=== PATIENT | male | born 1960 ===

== ENCOUNTER 2023-06-21 19:29 | Emergency (ER) | payer MEDICARE, OTHER ==
[2023-06-21] MEDS ORDERED: diphenhydrAMINE INJ 50 MG/ML VIAL IVP STA (19:42)
[2023-06-21] MEDS ORDERED: cefTRIAXone IV/IM 1,000 MG in NS (IVPB) 50 ML 50 ML IV STA (19:42)
[2023-06-21] MEDS ORDERED: dexAMETHasone INJ 10 MG/ML 1 ML VIAL IV STA (19:42)
[2023-06-21] MEDS ORDERED: NS IV 1000 ML 1,000 ML IV STA (19:42)
[2023-06-21] MEDS ORDERED: ACETAMINOPHEN 325 MG TABLET PO STA (19:42)
[2023-06-21 19:48] LABS: BASOPHILS % (AUTO) 0 % (0-10); EOSINOPHILS # (AUTO) 0.1 10^3/uL (0.0-0.3); EOSINOPHILS % (AUTO) 1 % (0-10); HEMATOCRIT 42 % (40-54); HEMOGLOBIN 13.9 g/dL (13.3-17.7); LYMPHOCYTES # (AUTO) 0.4 10^3/uL (1.0-4.0); LYMPHOCYTES % (AUTO) 4 % (12-44); MEAN CORPUSCULAR HEMOGLOBIN 28 pg (25-34); MEAN CORPUSCULAR HGB CONC 33 g/dL (32-36); MEAN CORPUSCULAR VOLUME 86 fL (80-99); MEAN PLATELET VOLUME 9.9 fL (9.0-12.2); MONOCYTES # (AUTO) 0.3 10^3/uL (0.0-1.0); MONOCYTES % (AUTO) 3 % (0-12); NEUTROPHILS # (AUTO) 8.9 10^3/uL (1.8-7.8); NEUTROPHILS % (AUTO) 91 % (42-75); PLATELET COUNT 144 10^3/uL (130-400); WHITE BLOOD COUNT 9.8 10^3/uL (4.3-11.0)
--- NOTE | 2023-06-21 19:51 | ED General ---
General Stated Complaint: RIGHT FOOR INJ|CHEST INJ Source of Information: Patient Exam Limitations: Language Barrier (Patient insisted on using family member for scientific specialist but was able to answer questions directly and seemed to understand Romansh) History of Present Illness Date Seen by Provider: Jun 21, 2023 Time Seen by Provider: 19:32 Initial Comments 63-year-old male presenting with family complaining of pain and swelling to bilateral feet. He has had a fever throughout the day. He was stung by a wasp yesterday on his right calf. He removed the stinger but today was having the pain and redness to bilateral feet as well as running a fever. He had tried Tylenol without improvement and was having severe pain whenever he tried to step down on his feet. He denies having symptoms like this previously. He did not take any other medicines by mouth. He had tried spraying some Raid on his skin because he thought that it might help with the itching but it seemed to make things worse. Timing/Duration: 12-24 Hours Severity: Moderate Associated Systoms: No Chest Pain, No Cough, No Diaphoresis; Fever/Chills; No Headaches, No Loss of Appetite; Malaise; No Nausea/Vomiting; Rash; No Seizure, No Shortness of Air, No Syncope, No Weakness Allergies and Home Medications Allergies Coded Allergies: No Known Drug Allergies (Unverified , 06/21/23) Patient Home Medication List Home Medication List Reviewed: Yes Cephalexin (Cephalexin) 500 Mg Capsule, 500 MG PO TID Prescribed by: VESTA CHOWDHURY on 06/21/232054 Diphenhydramine HCl (Diphenhydramine HCl) 25 Mg Capsule, 25 MG PO Q4H PRN for ITCHING Prescribed by: VESTA CHOWDHURY on 06/21/232054 Prednisone (Prednisone) 20 Mg Tab, 40 MG PO DAILY Prescribed by: VESTA CHOWDHURY on 06/21/232054 Review of Systems Review of Systems Constitutional: chills, fever EENTM: no symptoms reported Respiratory: no symptoms reported Cardiovascular: no symptoms reported Gastrointestinal: no symptoms reported Genitourinary: no symptoms reported Musculoskeletal: see HPI Skin: see HPI Psychiatric/Neurological: Anxiety Past Iedbdrc-Xbwwbg-Efpjcj Hx Patient Social History Tobacco Use?: No Physical Exam Vital Signs Vital Signs - First Documented 06/21/23 19:35 Temp 38.1 Pulse 79 Resp 18 B/P (MAP) 121/71 (88) Pulse Ox 96 O2 Delivery Room Air Capillary Refill : Height, Weight, BMI Height: '" Weight: lbs. oz. kg; BMI Method: General Appearance: No Apparent Distress, WD/WN Respiratory: Chest Non Tender, Lungs Clear, Normal Breath Sounds, No Accessory Muscle Use, No Respiratory Distress Cardiovascular: Regular Rate, Rhythm, Normal Peripheral Pulses Gastrointestinal: Normal Bowel Sounds, No Pulsatile Mass, Non Tender, Soft Extremity: Normal Capillary Refill, Inflammation (Both feet are red and tender to palpation with 1+ edema bilaterally), Pedal Edema (1+ BLE) Neurologic/Psychiatric: Alert, Oriented x3 Skin: Warm/Dry, Erythema (Bilateral feet) Focused Exam Lactate Level 06/21/23 19:47: Lactic Acid Level 1.35 Lactic Acid Level Laboratory Tests Test 06/21/23 19:47 Lactic Acid Level 1.35 MMOL/L (0.50-2.00) Progress/Results/Core Measures Suspected Sepsis SIRS Temperature: Pulse: Respiratory Rate: Laboratory Tests 06/21/23 19:47: White Blood Count 9.8 Blood Pressure / Mean: 06/21/23 19:47: Lactic Acid Level 1.35 Laboratory Tests 06/21/23 19:47: Creatinine 0.98, Platelet Count 144, Total Bilirubin 0.8 Results/Orders Lab Results Laboratory Tests Test 06/21/23 19:47 06/21/23 20:01 Range/Units White Blood Count 9.8 4.3-11.0 10^3/uL Red Blood Count 4.92 4.30-5.52 10^6/uL Hemoglobin 13.9 13.3-17.7 g/dL Hematocrit 42 40-54 % Mean Corpuscular Volume 86 80-99 fL Mean Corpuscular Hemoglobin 28 25-34 pg Mean Corpuscular Hemoglobin Concent 33 32-36 g/dL Red Cell Distribution Width 13.1 10.0-14.5 % Platelet Count 144 130-400 10^3/uL Mean Platelet Volume 9.9 9.0-12.2 fL Immature Granulocyte % (Auto) 0 % Neutrophils (%) (Auto) 91 H 42-75 % Lymphocytes (%) (Auto) 4 L 12-44 % Monocytes (%) (Auto) 3 0-12 % Eosinophils (%) (Auto) 1 0-10 % Basophils (%) (Auto) 0 0-10 % Neutrophils # (Auto) 8.9 H 1.8-7.8 10^3/uL Lymphocytes # (Auto) 0.4 L 1.0-4.0 10^3/uL Monocytes # (Auto) 0.3 0.0-1.0 10^3/uL Eosinophils # (Auto) 0.1 0.0-0.3 10^3/uL Basophils # (Auto) 0.0 0.0-0.1 10^3/uL Immature Granulocyte # (Auto) 0.0 0.0-0.1 10^3/uL Neutrophils % (Manual) 91 % Lymphocytes % (Manual) 2 % Monocytes % (Manual) 6 % Eosinophils % (Manual) 1 % Sodium Level 136 135-145 MMOL/L Potassium Level 3.9 3.6-5.0 MMOL/L Chloride Level 103 98-107 MMOL/L Carbon Dioxide Level 23 21-32 MMOL/L Anion Gap 10 5-14 MMOL/L Blood Urea Nitrogen 15 7-18 MG/DL Creatinine 0.98 0.60-1.30 MG/DL Estimat Glomerular Filtration Rate 88 BUN/Creatinine Ratio 15 Glucose Level 106 H 70-105 MG/DL Lactic Acid Level 1.35 0.50-2.00 MMOL/L Calcium Level 9.3 8.5-10.1 MG/DL Corrected Calcium 9.0 8.5-10.1 MG/DL Total Bilirubin 0.8 0.1-1.0 MG/DL Aspartate Amino Transf (AST/SGOT) 25 5-34 U/L Alanine Aminotransferase (ALT/SGPT) 16 0-55 U/L Alkaline Phosphatase 88 40-136 U/L C-Reactive Protein 2.43 H <0.50 MG/DL Total Protein 6.7 6.4-8.2 GM/DL Albumin 4.4 3.2-4.5 GM/DL Urine Color YELLOW Urine Clarity CLEAR Urine pH 6.5 5-9 Urine Specific [place] <=1.005 1.016-1.022 Urine Protein NEGATIVE NEGATIVE Urine Glucose (UA) NEGATIVE NEGATIVE Urine Ketones NEGATIVE NEGATIVE Urine Nitrite NEGATIVE NEGATIVE Urine Bilirubin NEGATIVE NEGATIVE Urine Urobilinogen 0.2 < = 1.0 MG/DL Urine Leukocyte Esterase NEGATIVE NEGATIVE Urine RBC (Auto) NEGATIVE NEGATIVE Urine RBC NONE /HPF Urine WBC 2-5 /HPF Urine Squamous Epithelial Cells 2-5 /HPF Urine Crystals NONE /LPF Urine Bacteria NEGATIVE /HPF Urine Casts NONE /LPF Urine Mucus NEGATIVE /LPF Urine Culture Indicated NO My Orders Orders - VESTA CHOWDHURY MD Acetaminophen Tablet (Acetaminophen Ta (06/21/23 19:42) Cbc With Automated Diff (06/21/23 19:42) Comprehensive Metabolic Panel (06/21/23 19:42) Blood Culture (06/21/23 19:42) Ua Culture If Indicated (06/21/23 19:42) Ed Iv/Invasive Line Start (06/21/23 19:42) Crp Fs (06/21/23 19:42) Lactic Acid Analyzer (06/21/23 19:42) Ns Iv 1000 Ml (Ns Iv 1000 Ml) (06/21/23 19:42) Dexamethasone Injection (Dexamethasone (06/21/23 19:42) Ceftriaxone Iv/Im (Ceftriaxone Iv/Im) (06/21/23 19:42) Diphenhydramine Injection (Diphenhydram (06/21/23 19:42) Manual Differential (06/21/23 19:47) Vital Signs/I&O 06/21/23 06/21/23 19:35 21:00 Temp 38.1 Pulse 79 74 Resp 18 18 B/P (MAP) 121/71 (88) 116/76 Pulse Ox 96 96 O2 Delivery Room Air Room Air Capillary Refill : Progress Note #1: Progress Note Potential diagnosis of allergic reaction, cellulitis, viral syndrome Establish peripheral IV access and send labs for complete blood count, compre hensive metabolic profile, CRP, blood cultures, lactic acid. Administer normal saline 1 L IV fluid bolus for hydration, dexamethasone 10 mg IV for pain and swelling. Diphenhydramine 25 mg IV for itching and swelling with redness. Acetaminophen 650 mg p.o. x1 for elevated temperature of 100.6 Fahrenheit. Progress Note #2: Progress Note His complete blood count did not show an elevated white blood cell count. He was not anemic with a hemoglobin of 13.9. Comprehensive metabolic profile did not show any acute electrolyte abnormalities. His lactic acid was not elevated at 1.35. Urinalysis was not showing infection. We will continue with short course of antibiotics for possible cellulitis and have him continue with the steroid and antihistamines for the redness and swelling. Check back with the clinic if continued concerns Departure Impression Primary Impression: Accidental wasp sting Additional Impressions: Allergic reaction to wasp sting Cellulitis Qualified Codes: L03.90 - Cellulitis, unspecified Disposition: 01 HOME, SELF-CARE Condition: Stable Departure-Patient Inst. Decision time for Depature: 20:52 Referrals: NO,LOCAL PHYSICIAN (PCP) Primary Care Physician [facility] Patient Instructions: Insect Bites and Stings ED, Allergic Reaction ED, Cellulitis (Skin Infection), Adult ED Add. Discharge Instructions: The labs all looked okay and did not show signs of sepsis or organ damage. The redness, swelling, pain seems to be related to the wasp sting and the venom reacting in the body. Take the prednisone, oral steroid, to treat for pain and inflammation. Take the cephalexin antibiotic to help with some cellulitis from the sting. Use diphenhydramine or Benadryl 25 mg every 4 hours as needed for redness, itching, rash. Check with the [facility] about establishing care and follow-up. They have additional funding to help with cost of medical treatment as well as medications. Your prescriptions were sent to the pharmacy at the [facility] because they are open on Friday and [facility] does not have a pharmacist on Sundays. Todos los anlisis parecan estar katina y no mostraban signos de sepsis o edgard a rganos. El enrojecimiento, la hinchazn y el dolor parecen estar relacionados con la picadura de la avispa y la reaccin del veneno en el cuerpo. Talpa prednisona, un esteroide oral, para tratar el dolor y la inflamacin. Talpa el antibitico cefalexina para ayudar con algo de celulitis por la picadura. Use difenhidramina o Benadryl 25 mg cada 4 horas segn sea necesario para el enrojecimiento, la picazn y el sarpullido. Consultar con el [facility] sobre el establecimiento de atencin y seguimiento. Tienen financiacin adicional para ayudar con el costo del tratamiento mdico y los medicamentos. Ellie recetas se enviaron a la farmacia del [facility] porque abren los ryan y [facility] no tiene farmacutico los ryan. Scripts Diphenhydramine HCl (Diphenhydramine HCl) 25 Mg Capsule 25 MG PO Q4H PRN for ITCHING for 5 Days, #30 CAP 0 Refills Prov: VESTA CHOWDHURY MD 06/21/23 Prednisone (Prednisone) 20 Mg Tab 40 MG PO DAILY for allergic reaction for 5 Days, #10 TAB 0 Refills Prov: VESTA CHOWDHURY MD 06/21/23 Cephalexin (Cephalexin) 500 Mg Capsule 500 MG PO TID for cellulitis for 5 Days, #15 CAP 0 Refills Prov: VESTA CHOWDHURY MD 06/21/23 VESTA CHOWDHURY MD Jun 21, 2023 19:51
[2023-06-21 20:04] LABS: BILIRUBIN,URINE NEGATIVE (NEGATIVE); CLARITY,URINE CLEAR; COLOR,URINE YELLOW; GLUCOSE, URINE (UA) NEGATIVE (NEGATIVE); KETONES,URINE NEGATIVE (NEGATIVE); LEUKOCYTE ESTERASE ,URINE NEGATIVE (NEGATIVE); NITRITE,URINE NEGATIVE (NEGATIVE); PH,URINE 6.5 (5-9); PROTEIN,URINE NEGATIVE (NEGATIVE)
[2023-06-21 20:09] LABS: BACTERIA,URINE NEGATIVE /HPF
[2023-06-21 20:11] LABS: POTASSIUM 3.9 MMOL/L (3.6-5.0)
[2023-06-21 20:12] LABS: ALBUMIN 4.4 GM/DL (3.2-4.5); BILIRUBIN,TOTAL 0.8 MG/DL (0.1-1.0); CALCIUM 9.3 MG/DL (8.5-10.1); CREATININE SERUM 0.98 MG/DL (0.60-1.30); TOTAL PROTEIN 6.7 GM/DL (6.4-8.2)
[2023-06-21 20:24] LABS: EOSINOPHILS % (MANUAL) 1 %; LYMPHOCYTES % (MANUAL) 2 %; MONOCYTES % (MANUAL) 6 %; NEUTROPHILS % (MANUAL) 91 %
[2023-06-21] MEDS ORDERED: CEPH500C PO (20:55)
[2023-06-21] MEDS ORDERED: DIPH-1122 PO (20:55)
[2023-06-21] MEDS ORDERED: PRD20T PO (20:55)
[2023-06-21 21:00] VITALS: BP 116/76
== END 2023-06-21 21:04 | disposition home or self-care (01) ==
LOC: ER FS 19:33
DX: T63.461A Toxic effect of venom of wasps, accidental (unintentional), initial encounter (principal); L03.116 Cellulitis of left lower limb; L03.115 Cellulitis of right lower limb; Z28.310 Unvaccinated for COVID-19
CPT/HCPCS: 36415; 80053; 81000; 83605; 85007; 85027; 86141; 87040

== ENCOUNTER 2023-07-02 11:14 | Emergency (ER) | payer OTHER ==
[~2023-07-02] VITALS: Ht 170 cm; Wt 87.0 kg
[~2023-07-02 11:14] MED LIST: CEPH500C PO; DIPH-1122 PO; PRD20T PO
[2023-07-02 11:31] VITALS: BP 135/84
--- NOTE | 2023-07-02 11:35 | ED Integumentary General ---
General Chief Complaint: Skin/Wound Problems Stated Complaint: BUMP ON CHEST Source: patient Exam Limitations: no limitations History of Present Illness Date Seen by Provider: Jul 02, 2023 Time Seen by Provider: 11:19 Initial Comments 63-year-old male presents to the emergency department today for a red area on his anterior chest that is raised. Symptoms present for about 2 weeks after he had a wasp sting on his right calf. He was treated with antibiotics and steroids and has finished this course as of about 3 days ago. The red area on his chest is improving but it has persisted which is his main concern. No fevers chills nausea or vomiting. No chest pain or shortness of breath. All other systems reviewed and negative except documented per HPI. Voice recognition software was used to help create this chart Allergies and Home Medications Allergies Coded Allergies: No Known Drug Allergies (Unverified , 06/21/23) Patient Home Medication List Home Medication List Reviewed: Yes Cephalexin (Cephalexin) 500 Mg Capsule, 500 MG PO TID Prescribed by: VESTA CHOWDHURY on 06/21/232054 Diphenhydramine HCl (Diphenhydramine HCl) 25 Mg Capsule, 25 MG PO Q4H PRN for ITCHING Prescribed by: VESTA CHOWDHURY on 06/21/232054 Prednisone (Prednisone) 20 Mg Tab, 40 MG PO DAILY Prescribed by: VESTA CHOWDHURY on 06/21/232054 Review of Systems Review of Systems Constitutional: see HPI Past Ceslrsh-Iqrjcv-Tlmnai Hx Patient Social History Tobacco Use?: No Substance use?: No Alcohol Use?: Yes Alcohol type: Hard Liquor Alcohol Frequency: Once in a while Physical Exam Vital Signs Capillary Refill : General Appearance: WD/WN, no apparent distress HEENT: normal ENT inspection, pharynx normal Neck: non-tender, full range of motion, supple, normal inspection Cardiovascular: regular rate, rhythm, no murmur Respiratory: chest non-tender, lungs clear, normal breath sounds, no respiratory distress, no accessory muscle use Gastrointestinal: non tender, soft Extremities: normal range of motion, non-tender, normal inspection Skin: other (There is a raised V-type area in his anterior chest that is slightly erythematous. No induration. No drainage.) Departure Communication (Admissions) Patient is hemodynamically stable. Rash appears to be inflammation, no evidence for cellulitis or other infections. No abscess or drainage. Given that the rash appears to be improving on its own we will go ahead and allow it to continue to heal on its own discharged in stable condition with supportive care. Impression Primary Impression: Skin rash Disposition: HOME, SELF-CARE Condition: Stable Departure-Patient Inst. Referrals: NO,LOCAL PHYSICIAN (PCP/Family) Primary Care Physician Patient Instructions: Skin Rash (DC) Add. Discharge Instructions: No emergent condition is identified. As long as the area continues to improve there is no further treatment required. Return to the emergency department for any severe concerns. Follow-up with your primary doctor for any nonemergent needs All discharge instructions reviewed with patient and/or family. Voiced understanding. EDUARDO GORDON DO Jul 02, 2023 11:35
== END 2023-07-02 11:40 | disposition home or self-care (01) ==
LOC: EDUNIT# 11:14 → ER FS 11:16
DX: R21 Rash and other nonspecific skin eruption (principal)
CPT/HCPCS: 99281